=== PATIENT | female | born 1945 | race Caucasian/White ===

== ENCOUNTER 2018-01-06 13:15 | Emergency (ER) | payer MEDICARE, OTHER ==
[2018-01-06 16:44] LABS: BASOPHILS 0.6 % (0-2); EOSINOPHILS 0.7 % (0-7); HEMATOCRIT 41.8 % (36.0-48.0); HEMOGLOBIN 14.6 g/dL (12-16); IMMATURE GRANULOCYTES 0.1 % (0-5); MCH 32.8 pg (26.0-34.0); MCHC 34.9 g/dL (31.0-37.0); MCV 93.9 fL (80.0-100.0); MEAN PLATELET VOLUME 11.5 fL (7.4-10.4); MONOCYTES 8.2 % (2-11); NEUTROPHILS 68.4 % (40-80); PLATELET COUNT 224 10x3/uL (130-400); RBC 4.45 10x6/uL (4.00-5.40); RDW 12.9 % (11.5-14.5); WBC 6.9 10x3/uL (4.8-10.8)
[2018-01-06 16:52] LABS: INR 0.99 (0.85-1.17); PROTIME 12.7 SECONDS (11.6-15.0)
[2018-01-06 17:03] LABS: ALBUMIN 4.1 g/dL (3.4-5.0); ALKALINE PHOSPHATASE 91 U/L (46-116); ALT (SGPT) 48 U/L (10-68); CALC OSMOLALITY 278 mosm/kg (275-300); CALCIUM 8.9 mg/dL (8.5-10.1); CHLORIDE - SERUM 101 mmol/L (98-107); CREATININE - SERUM 0.8 mg/dL (0.6-1.3); GLUCOSE 130 mg/dL (74-106); POTASSIUM - SERUM 3.3 mmol/L (3.5-5.1); PROTEIN - SERUM 8.5 g/dL (6.4-8.2); SODIUM 139 mmol/L (136-145); UREA NITROGEN 11 mg/dL (7-18); eGFR NON AFRICAN AMERICAN 75 mL/min (90-120)
[2018-01-06 17:11] LABS: CREATINE KINASE 49 UL (21-215); MAGNESIUM - SERUM 1.8 mg/dL (1.8-2.4); PRO BNP 73 pg/mL (0-125)
[2018-01-06 17:33] LABS: APPEARANCE CLEAR (CLEAR); BILIRUBIN NEGATIVE (NEGATIVE); COLOR YELLOW (YELLOW); GLUCOSE NEGATIVE (NEGATIVE); KETONE NEGATIVE (NEGATIVE); NITRITE NEGATIVE (NEGATIVE); PROTEIN NEGATIVE (NEGATIVE); SPECIFIC GRAVITY 1.005 (1.005-1.020); UROBILINOGEN NORMAL (NORMAL)
== END 2018-01-06 20:15 | disposition home or self-care (01) ==
LOC: D.ER 13:15
PROVIDERS: Nurse Practitioner Family
DX: J11.1 Influenza due to unidentified influenza virus with other respiratory manifestations (principal); R53.1 Weakness

== ENCOUNTER → 2018-05-30 16:18 | Outpatient (CLI) | payer MEDICARE, OTHER | END | disposition home or self-care (01) | LOC: D.US 16:18 | DX: E04.1 Nontoxic single thyroid nodule (principal) ==